=== PATIENT | female | born 1990 | race Caucasian/White ===

== ENCOUNTER 2019-02-18 10:19 | Emergency (ER) | payer MEDICAID, OTHER | END 2019-02-18 10:35 | disposition home or self-care (01) | LOC: BURERS 10:19 | DX: O99.513 Diseases of the respiratory system complicating pregnancy, third trimester (principal); J11.1 Influenza due to unidentified influenza virus with other respiratory manifestations; Z3A.28 28 weeks gestation of pregnancy | CPT/HCPCS: 99281 ==

== ENCOUNTER 2020-10-12 21:07 | Emergency (ER) | payer OTHER ==
[2020-10-12] MEDS ORDERED: Acetaminophen 500 MG TAB ONE (21:47)
[2020-10-12] MEDS ORDERED: Dexamethasone 10 MG/ML VIAL ONE (22:02)
[2020-10-12 22:45] LABS: ALT (SGPT) 18 U/L (8-55); AST (SGOT) 29 U/L (5-34); Albumin 3.7 g/dL (3.5-5.0); Alkaline Phosphatase 66 U/L (40-110); Anion Gap 14 mmol/L (10-20); BUN (Urea Nitrogen) Less than 4 mg/dL (7.0-18.7); Bilirubin, Total 0.4 mg/dL (0.2-1.2); Calc. Creatinine Clearance 0 mL/min (70-130); Calcium 8.5 mg/dL (7.8-10.44); Carbon Dioxide 22 mmol/L (22-29); Chloride 105 mmol/L (98-107); Globulin 3.1 g/dL (2.4-3.5); Glucose 113 mg/dL (70-105); Potassium 3.2 mmol/L (3.5-5.1); Protein, Total 6.8 g/dL (6.0-8.3); Sodium 138 mmol/L (136-145)
[2020-10-12] MEDS ORDERED: Potassium Chloride 20 MEQ TAB ONE (22:51)
[2020-10-12 23:01] LABS: Band 19 % (5-11); Hemoglobin 13.2 g/dL (12.0-16.0); Lymphocytes 14 % (21-51); MDiff Complete? YES; Mean Corpuscular HGB CONC 33.9 g/dL (32.0-36.0); Mean Corpuscular Hemoglobin 30.8 pg (27.0-31.0); Mean Corpuscular Volume 90.9 fL (78.0-98.0); Mean Platelet Volume 8.2 fL (7.4-10.4); Monocytes 8 % (0-10); Neutrophil 59 % (42-75); Platelet Count 190 thou/uL (130-400); Platelet Morphology Comment Appears Adequate; RBC Distribution Width 10.9 % (11.5-14.5); RBC Morphology Normal; White Blood Cell (WBC) Count 5.9 thou/uL (4.8-10.8)
[2020-10-13 00:16] LABS: SARS-CoV-2 NAA Rapid Test DETECTED (NotDetected)
== END 2020-10-12 23:50 | disposition home or self-care (01) ==
LOC: BURERS 21:07
DX: U07.1 COVID-19 (principal)
CPT/HCPCS: 71045; 80053; 83605; 84484; 85025; 87040; 87149; 93005; 94760; 96374; J1100; J7620; U0002

== ENCOUNTER 2021-11-23 07:13 | Emergency (ER) | payer OTHER ==
[2021-11-23] MEDS ORDERED: predniSONE 20 MG TAB ONE (08:14)
== END 2021-11-23 08:18 | disposition home or self-care (01) ==
LOC: BURERS 07:13
DX: T78.40XA Allergy, unspecified, initial encounter (principal); F17.290 Nicotine dependence, other tobacco product, uncomplicated
CPT/HCPCS: 99283; J7512

== ENCOUNTER 2022-01-17 01:16 | Emergency (ER) | payer OTHER ==
[2022-01-17] MEDS ORDERED: Morphine 4 MG/ML VIAL ONE (01:29)
[2022-01-17 01:44] LABS: #Basophils 0.1 thou/uL (0.0-0.2); #Eosinphils 0.2 thou/uL (0.0-0.7); #Lymphocytes 2.9 thou/uL (1.20-3.40); #Monocytes 0.6 thou/uL (0.11-0.59); #Neutrophils 4.4 thou/uL (1.40-6.50); %Basophils 1.5 % (0.0-1.0); %Lymphocytes 34.7 % (21.0-51.0); %Monocytes 6.8 % (0.0-10.0); %Neutrophils 53.9 % (42.0-75.0); Hemoglobin 15.5 g/dL (12.0-16.0); Mean Corpuscular HGB CONC 34.3 g/dL (32.0-36.0); Mean Corpuscular Hemoglobin 33.4 pg (27.0-31.0); Mean Corpuscular Volume 97.5 fl (78.0-98.0); Mean Platelet Volume 7.5 fL (7.4-10.4); Platelet Count 353 10x3/uL (130-400); RBC Distribution Width 10.9 % (11.5-14.5); Red Blood Cell (RBC) Count 4.64 mill/uL (4.20-5.40); White Blood Cell (WBC) Count 8.2 10x3/uL (4.8-10.8)
[2022-01-17 01:54] LABS: BHCG - Serum Negative (NEGATIVE); Pregs Control Background? CLEAR/WHITE (CLR/WHITE); Pregs Control Bar Appear? YES (CONTROL BAR)
[2022-01-17 01:58] LABS: ALT (SGPT) 59 U/L (8-55); AST (SGOT) 36 U/L (5-34); Acetaminophen Less than 10.0 mcg/mL (10.0-30.0); Alcohol 306 mg/dL (Less than 10); Alkaline Phosphatase 57 U/L (40-110); Anion Gap 16 mmol/L (10-20); BUN (Urea Nitrogen) 7 mg/dL (7.0-18.7); Bilirubin, Total 0.5 mg/dL (0.2-1.2); Calc. Creatinine Clearance 0 mL/min (70-130); Calcium 9.6 mg/dL (7.8-10.44); Carbon Dioxide 22 mmol/L (22-29); Chloride 112 mmol/L (98-107); Estimated GFR 112; Globulin 2.7 g/dL (2.4-3.5); Glucose 121 mg/dL (70-105); Potassium 3.8 mmol/L (3.5-5.1); Protein, Total 7.7 g/dL (6.0-8.3); Salicylate Less than 8.0 mg/dL (15.0-30.0); Sodium 146 mmol/L (136-145)
[2022-01-17] MEDS ORDERED: Lidocaine 4% Cream 5 GM TUBE w/ Tegaderm ONE (02:34)
[2022-01-17] MEDS ORDERED: Lidocaine 1% (PF) 30 ML VIAL ONE (03:09)
== END 2022-01-17 03:58 | disposition home or self-care (01) ==
LOC: BURERS 01:16
DX: S01.81XA Laceration without foreign body of other part of head, initial encounter (principal); S81.012A Laceration without foreign body, left knee, initial encounter; F17.290 Nicotine dependence, other tobacco product, uncomplicated; Y04.8XXA Assault by other bodily force, initial encounter
CPT/HCPCS: 12002; 12011; 70450; 70486; 71045; 72125; 80053; 80307; 83605; 84703; 85025; 96374; J2001; J2270

== ENCOUNTER 2022-01-29 22:21 | Emergency (ER) | payer OTHER ==
[2022-01-30] MEDS ORDERED: Clindamycin 150 MG CAP ONE (00:22)
== END 2022-01-30 00:29 | disposition home or self-care (01) ==
LOC: BURERS 22:21
DX: T81.33XA Disruption of traumatic injury wound repair, initial encounter (principal); F17.290 Nicotine dependence, other tobacco product, uncomplicated
CPT/HCPCS: 99282